=== PATIENT | male | born 1995 | race African-American/Black ===

== ENCOUNTER 2017-08-24 00:54 | Emergency (ER) | payer OTHER, MEDICAID ==
[2017-08-24] MEDS: DERMABOND TOPICAL SKIN ADHESIVE TOP (01:15)
== END 2017-08-24 02:26 | disposition home or self-care (01) ==
LOC: M ED 00:54
DX: S01.312A Laceration without foreign body of left ear, initial encounter (principal); Y92.89 Other specified places as the place of occurrence of the external cause; Y35.893A Legal intervention involving other specified means, suspect injured, initial encounter; Z88.8 Allergy status to other drugs, medicaments and biological substances
CPT/HCPCS: 12011